=== PATIENT | male | born 1955 | race American Indian/Alaskan Native ===

== ENCOUNTER 2021-10-27 12:16 | Emergency (ER) | payer MEDICARE ==
--- NOTE | 2021-10-27 15:40 | Emergency Department Report ---
Chief Complaint: Overdose Stated Complaint: SWALLOW TO MANY PILLS - HPI History of Present Illness: 70-year-old male history of hypertension initially signed in for overdose "took too much of his hydralazine and unknown". Family also reports Cruz catheter problem. Patient has "kidney is not fun ctioning and had a catheter placed on the 14th at [facility], has not had any urine output since this morning". Complain of abdominal pain. Has not followed up with urology since. Reports abdominal pain, suprapubic pain, bladder distention. Dysuria. Denies fever chills shortness of breath, headache dizziness or vision changes. No hypotension. In the setting of a significantly high volume and record number of patients presenting to the emergency department and the fact that we have a limited space to see patients we have implemented the provider in triage protocol this allows an expedited initial exam of patients that might otherwise have left without being seen or who would wait longer than usual to be seen by provider. I interviewed the patient and performed a limited physical exam. This patient is a pulled from the waiting room to triage room for an initial assessment of adrenal studies and then returned to the waiting room pending results of the studies. The ultimate final evaluation and disposition may be performed by another provider depending on room and provider availability. - Exam Vital Signs: Vital Signs 10/27/21 13:00 Temperature 98.6 F Pulse Rate 81 Respiratory 14 Rate Blood Pressure 124/64 O2 Sat by Pulse 98 Oximetry MSE screening note: Focused history and physical exam performed. Due to findings the following was ordered: ED Disposition for MSE Condition: Stable
--- NOTE | 2021-10-27 16:27 | Cat Scan Report ---
CT ABDOMEN AND PELVIS WITHOUT CONTRAST INDICATION / CLINICAL INFORMATION: urinary retention. Pain associated with Cruz catheter TECHNIQUE: Axial CT images were obtained through the abdomen and pelvis without IV contrast. All CT scans at this location are performed using CT dose reduction for ALARA by means of automated exposure control. COMPARISON: None available. FINDINGS: LOWER CHEST: No acute abnormality LIVER: No significant abnormality. GALLBLADDER: No significant abnormality. BILE DUCTS: No significant abnormality. PANCREAS: No significant abnormality. SPLEEN: No significant abnormality. ADRENALS: No significant abnormality. RIGHT KIDNEY / URETER: 4 cm hypodensity in the mid right kidney measures 17 Hounsfield units and like ly represents a cyst. There is a 9 mm hyperdense exophytic nodule arising from the lower pole. This i s too small to characterize but most likely represents a hyperdense cyst. LEFT KIDNEY / URETER: Hypodensities with mural calcification in the mid left kidney likely represent complicated cyst. There are additional hypodensities without calcifications that are likely simple cy sts. STOMACH / SMALL BOWEL: No significant abnormality. COLON: Diverticulosis without acute inflammation. APPENDIX: No significant abnormality. PERITONEUM: No free fluid. No free air. No fluid collection. LYMPH NODES: No significant adenopathy. AORTA / ARTERIES: Moderate atherosclerotic calcification without acute abnormality. IVC / VEINS: No significant abnormality. URINARY BLADDER: Contracted around a Cruz catheter. REPRODUCTIVE ORGANS: No significant abnormality. ADDITIONAL FINDINGS: None. SKELETAL SYSTEM: No significant abnormality. IMPRESSION: 1. There is no obstruction, inflammation, or free air. There are no abnormal fluid collections. 2. The urinary bladder is contracted around a Cruz catheter. 3. Hypodensities in the kidneys likely represent cysts.. Signer Name: Nacho Bearden MD Signed: 10/27/2021 4:23 PM Workstation Name: [employer]
[2021-10-27 18:05] LABS: Basophils # (Auto) 0.1 K/mm3 (0.0-0.1); Basophils % (Auto) 0.7 % (0.0-1.8); Eosinophils # (Auto) 0.2 K/mm3 (0.0-0.4); Eosinophils % (Auto) 2.5 % (0.0-4.3); Hemoglobin 9.6 gm/dl (11.8-15.2); Lymphocytes % (Auto) 24.8 % (13.4-35.0); Mean Corpuscular HGB Conc 33 % (32-34); Mean Corpuscular Volume 82 fl (84-94); Monocytes # (Auto) 0.8 K/mm3 (0.0-0.8); Monocytes % (Auto) 10.1 % (0.0-7.3); Platelet Count 208 K/mm3 (140-440); Red Blood Count 3.53 M/mm3 (3.65-5.03); Red Cell Distribution Width 16.6 % (13.2-15.2)
[2021-10-27 18:12] LABS: Albumin 4.5 g/dL (3.9-5); Calcium 9.5 mg/dL (8.4-10.2)
--- NOTE | 2021-10-28 00:01 | Emergency Department Report ---
ED General Adult HPI - General Chief complaint: Overdose Stated complaint: SWALLOW TO MANY PILLS Source: patient Mode of arrival: Ambulatory Limitations: No Limitations - History of Present Illness Initial comments: 65-year-old male who presents with concern with his Henry catheter that was placed at [facility] on the of this month due to inability to urinate. Patient now reports some pain coming from that area. He also have told the bedside nurse that he took too many of his antihypertensive hydralazine in the morning. Blood pressure at this point is slightly high. No fever or chills reported. No other modifying or associated factors reported. Severity scale (0 -10): 0 - Related Data Previous Rx's Medication Instructions Recorded Last Taken Type cephALEXin [Keflex] 500 mg PO Q12HR 10 Days #20 cap NS 10/28/21 Unknown Rx Allergies Allergy/AdvReac Type Severity Reaction Status Date / Time No Known Allergies Allergy Verified 10/27/21 13:04 ED Review of Systems ROS: Stated complaint: SWALLOW TO MANY PILLS Other details as noted in HPI Comment: All other systems reviewed and negative Genitourinary: dysuria, other ED Past Medical Hx - Past Medical History Hx Hypertension: Yes Hx CVA: Yes Hx Renal Disease: Yes Hx of Cancer: Yes (renal) Hx Dementia: Yes Additional medical history: enlarged prostate with henry cath - Surgical History Additional Surgical History: ICD - Social History Smoking Status: Never Smoker - Medications Home Medications: Home Medications Medication Instructions Recorded Confirmed Last Taken Type cephALEXin [Keflex] 500 mg PO Q12HR 10 Days #20 cap NS 10/28/21 Unknown Rx ED Physical Exam - General Limitations: No Limitations General appearance: alert, in no apparent distress - Head Head exam: Present: normal inspection - Eye Eye exam: Present: normal appearance Pupils: Present: normal accommodation - ENT ENT exam: Present: normal exam, mucous membranes dry - Neck Neck exam: Present: normal inspection, full ROM. Absent: tenderness - Respiratory Respiratory exam: Present: normal lung sounds bilaterally. Absent: respiratory distress, accessory muscle use - Cardiovascular Cardiovascular Exam: Present: regular rate, normal rhythm, normal heart sounds - GI/Abdominal GI/Abdominal exam: Present: soft, normal bowel sounds. Absent: distended, tenderness - Extremities Exam Extremities exam: Present: normal capillary refill. Absent: pedal edema - Back Exam Back exam: Absent: tenderness - Neurological Exam Neurological exam: Present: alert, oriented X3 - Psychiatric Psychiatric exam: Present: normal affect, normal mood - Skin Skin exam: Present: warm, dry ED Course Vital Signs 10/27/21 10/27/21 10/28/21 13:00 15:41 00:00 Temperature 98.6 F 97.7 F Pulse Rate 81 81 80 Respiratory 14 15 15 Rate Blood Pressure 124/64 Blood Pressure 185/103 163/105 [Right] O2 Sat by Pulse 98 98 97 Oximetry 10/28/21 10/28/21 02:00 03:41 Temperature Pulse Rate 85 80 Respiratory 17 15 Rate Blood Pressure Blood Pressure 165/88 135/78 [Right] O2 Sat by Pulse 98 98 Oximetry ED Medical Decision Making - Lab Data Result diagrams: 10/27/21 17:09 10/27/21 17:09 - Medical Decision Making here with pain from his chronic henry catheter -- will order UA and routine labs to rule out any infectious process or electrolytes imbalance-- in the meantime will have bedside nurse change the henry catheter --and irrigate -- Lab reviewed and noted with large urine leukocytes with clumps and high urine wbc -- this is likely UTI considering presenting symptoms of burning -- so will give Rocephin 1 g and discharge home to complete 10 days of keflex -- Critical care attestation.: If time is entered above; I have spent that time in minutes in the direct care of this critically ill patient, excluding procedure time. ED Disposition Clinical Impression: Dysuria Henry catheter problem Qualifiers: Encounter type: initial encounter Qualified Code(s): T83.9XXA - Unspecified complication of genitourinary prosthetic device, implant and graft, initial encounter UTI (urinary tract infection) Qualifiers: Urinary tract infection type: catheter-associated UTI Indwelling urinary catheter type: unspecified Encounter type: initial encounter Qualified Code(s): T83.511A - Infection and inflammatory reaction due to indwelling urethral catheter, initial encounter Disposition: 01 HOME / SELF CARE / HOMELESS Is pt being admited?: No Does the pt Need Aspirin: No Condition: Stable Instructions: Antibiotic Medicine, Adult, [id number], Urinary Tract Infection, Adult, [id number] Additional Instructions: It is very important that you take and complete your antibiotics as prescribed to continue to help your symptoms Increase your daily fluid to help your hydration Please call and follow-up with your urology in the next 3 to 5 days to reevaluate whether you need to continue using your Ehnry catheter Please call or return to emergency room if your symptoms worsen Prescriptions: cephALEXin [Keflex] 500 mg PO Q12HR 10 Days #20 cap NS Referrals: GERA PITTS MD [Primary Care Provider] - 3-5 Days Time of Disposition: 05:41
[2021-10-28 00:04] LABS: Color,Urine Colorless (Yellow)
[2021-10-28 00:05] LABS: Bilirubin,Urine Negative (Negative); Blood,Urine Negative (Negative); PH,Urine 7.5 (5.0-7.0)
[2021-10-28 00:06] LABS: Protein,Urine 300 mg/dL mg/dL (Negative); Urobilinogen,Urine 0.2 mg/dL (<2.0)
[2021-10-28 00:08] LABS: Bacteria,Urine 2+ /HPF (Negative); Hyaline Casts,Urine 1 /LPF; Mucus,Urine FEW /HPF
[2021-10-28] MEDS ORDERED: cefTRIAXone/NS 1 GM/50 ML 1 GM/50 ML BAG IV ONE (02:25)
[2021-10-28 06:18] VITALS: BP 135/78
--- NOTE | 2021-10-28 09:40 | Electrocardiograph Report ---
[facility] Test Date: 2021-10-27 Test Time: 13:07:02 Pat Name: JERMAIN DURAN Department: Room: Gender: M Chief Science Officer: CLAU : 1955 Requested By: SHAHIDA GONSALES Order Number: [id number] [place] MD: Matthew Carter Measurements Intervals [place] Rate: 83 P: NM: QRS: 66 QRSD: 80 T: -58 QT: 483 QTc: 568 Interpretive Statements undetermined rhythm due to artifact Ventricular premature complex Consider left ventricular hypertrophy Repol abnrm suggests ischemia, inferior leads ST elevation, consider lateral injury Prolonged QT interval No previous ECG available for comparison Electronically Signed On 10-28-2021 9:40:03 EDT by Matthew Carter
== END 2021-10-28 06:16 | disposition home or self-care (01) ==
LOC: ED 12:16
DX: T83.9XXA Unspecified complication of genitourinary prosthetic device, implant and graft, initial encounter (principal); N39.0 Urinary tract infection, site not specified; R30.0 Dysuria; I12.9 Hypertensive chronic kidney disease with stage 1 through stage 4 chronic kidney disease, or unspecified chronic kidney disease; N18.9 Chronic kidney disease, unspecified; Z86.73 Personal history of transient ischemic attack (TIA), and cerebral infarction without residual deficits; F03.90 Unspecified dementia, unspecified severity, without behavioral disturbance, psychotic disturbance, mood disturbance, and anxiety; Z85.53 Personal history of malignant neoplasm of renal pelvis; N40.1 Benign prostatic hyperplasia with lower urinary tract symptoms; Z98.890 Other specified postprocedural states; Y69 Unspecified misadventure during surgical and medical care; Y92.89 Other specified places as the place of occurrence of the external cause
CPT/HCPCS: 36415; 51702; 74176; 80053; 81001; 85025; 87076; 87086; 87186; 93005; 96365; 99285; J0696